=== PATIENT | male | born 1990 | race Caucasian/White ===

== ENCOUNTER 2017-02-24 13:14 | Emergency (ER) | payer OTHER ==
[~2017-02-24] VITALS: Wt 81.6 kg
[~2017-02-24 13:14] MED LIST: ATIVAN1 MG PO; CLONAZEPAM1 MG PO; CREATINE PO; FLEXERIL10 MG PO; LORAZEPAM1 MG PO; MULTIVITAMIN1 TAB PO; PREDNICOT20 MG PO; Zofran4 MG PO
[2017-02-24] MEDS ORDERED: CYCLOBENZAPRINE5 M3 PO (15:46)
== END 2017-02-24 15:56 | disposition home or self-care (01) ==
LOC: ED 13:14
DX: S39.012A Strain of muscle, fascia and tendon of lower back, initial encounter (principal); Z88.6 Allergy status to analgesic agent; Z79.899 Other long term (current) drug therapy; X58.XXXA Exposure to other specified factors, initial encounter; Y93.89 Activity, other specified; Y92.89 Other specified places as the place of occurrence of the external cause; Y99.9 Unspecified external cause status

== ENCOUNTER 2017-10-17 10:29 | Emergency (ER) | payer OTHER ==
[~2017-10-17] VITALS: Wt 81.6 kg
[~2017-10-17 10:29] MED LIST changes: +CYCLOBENZAPRINE5 M3 PO
[2017-10-17] MEDS ORDERED: CEPHALEXIN500 M1 PO (11:03)
== END 2017-10-17 13:28 | disposition home or self-care (01) ==
LOC: ED 10:29
DX: S61.211A Laceration without foreign body of left index finger without damage to nail, initial encounter (principal); Z88.8 Allergy status to other drugs, medicaments and biological substances; Z79.899 Other long term (current) drug therapy; W22.8XXA Striking against or struck by other objects, initial encounter; Y93.89 Activity, other specified; Y92.89 Other specified places as the place of occurrence of the external cause; Y99.8 Other external cause status

== ENCOUNTER → 2020-12-16 | Outpatient (CLI) | payer OTHER ==
[~2020-12-16] MED LIST changes: +CEPHALEXIN500 M1 PO
== END | disposition home or self-care (01) ==
LOC: ORTHO 01:13
PROVIDERS: ATTEND Orthopaedic Surgery
DX: M25.562 Pain in left knee (principal)

== ENCOUNTER 2023-12-08 13:58 | Emergency (ER) | payer OTHER ==
[~2023-12-08] VITALS: Ht 170.1 cm; Wt 79.4 kg
== END 2023-12-08 16:58 | disposition home or self-care (01) ==
LOC: ED 13:58
DX: S90.31XA Contusion of right foot, initial encounter (principal); F41.9 Anxiety disorder, unspecified; W20.8XXA Other cause of strike by thrown, projected or falling object, initial encounter; Y93.89 Activity, other specified; Y92.89 Other specified places as the place of occurrence of the external cause; Y99.0 Civilian activity done for income or pay